=== PATIENT | female | born 2000 | race Caucasian/White ===

== ENCOUNTER 2021-07-15 01:25 | Emergency (ER) | payer OTHER ==
[2021-07-15] MEDS ORDERED: Ondansetron PF 4 MG/2 ML Vial ONE (02:09)
[2021-07-15] MEDS ORDERED: Lorazepam 2 MG/ML VIAL ONE (03:04)
== END 2021-07-15 03:32 | disposition home or self-care (01) ==
LOC: CSHERS 01:25
DX: R11.2 Nausea with vomiting, unspecified (principal); F41.9 Anxiety disorder, unspecified; R19.7 Diarrhea, unspecified; R10.9 Unspecified abdominal pain; Z79.899 Other long term (current) drug therapy
CPT/HCPCS: 96372; 96374; 96375; J0500; J2060; J2405